=== PATIENT | male | born 1935 | race Two or more races ===

== ENCOUNTER → 2024-12-08 | Outpatient (BNVA) | payer MEDICARE, BC, SELFPAY | END | disposition home or self-care (01) | PROVIDERS: PCP Family Medicine; Referring Provider Family Medicine; Visit Provider Urology | DX: N40.1 Benign prostatic hyperplasia with lower urinary tract symptoms (principal); N13.8 Other obstructive and reflux uropathy; N43.40 Spermatocele of epididymis, unspecified; I10 Essential (primary) hypertension; E66.9 Obesity, unspecified; Z68.26 Body mass index [BMI] 26.0-26.9, adult | CPT/HCPCS: 81003; 99212; G0463 ==

== ENCOUNTER → 2025-03-16 | Outpatient (CLI) | payer MEDICARE, BC, SELFPAY ==
--- NOTE | 2025-03-16 15:43 | XR_ITS ---
Examination: Bilateral temporomandibular joints TECHNIQUE: Brigitte, right and left sagittal oblique temporomandibular joints Date and time: March 16, 2025 1545 hours INDICATIONS: Temporomandibular joint pain months FINDINGS: Moderate osteoarthritis temporomandibular joints No fractures There appears to be adequate for translation of both mandibular condyles in the open-mouth position IMPRESSION: Moderate bilateral osteoarthritis temporomandibular joints
== END | disposition home or self-care (01) ==
LOC: CDIM 15:33
PROVIDERS: PCP Family Medicine; Referring Provider Otolaryngology Otolaryngology/Facial Plastic Surgery; Visit Provider Otolaryngology Facial Plastic Surgery
DX: M19.09 Primary osteoarthritis, other specified site (principal)
CPT/HCPCS: 70330